=== PATIENT | female | born 1970 | race Caucasian/White ===

== ENCOUNTER 2016-08-10 17:40 | Emergency (ER) | payer OTHER ==
[~2016-08-10] VITALS: Ht 157.5 cm; Wt 53.5 kg
[2016-08-10] MEDS ORDERED: ZYRTEC10 M5 PO (17:57)
[2016-08-10] MEDS ORDERED: OMEPRAZOLE40 MG PO (17:58)
[2016-08-10] MEDS ORDERED: GABAPENTIN 100100 MG PO (17:58)
[2016-08-10] MEDS ORDERED: TRAMADOL 50 MG50 MG PO (17:58)
[2016-08-10] MEDS ORDERED: ALEVE220 MG PO (17:58)
[2016-08-10] MEDS ORDERED: NEURONTIN 300300 M1 PO (17:58)
[2016-08-10] MEDS ORDERED: CYCLOBENZAPRINE5 MG PO (17:59)
[2016-08-10] MEDS ORDERED: AMITRIPTYLINE H25 M2 PO (17:59)
[2016-08-10] MEDS ORDERED: HYDROCHLOROTHIA25 M2 PO (17:59)
[2016-08-10 18:16] LABS: HEMATOCRIT 38.6 % (37.0-47.0); HEMOGLOBIN 12.8 gm/dL (12.0-15.0); MCH 29.8 pg (26.0-34.0); MCHC 33.2 g/dL (28.0-37.0); MCV 89.6 fL (80.0-100.0); RBC 4.3 mil/uL (4.20-5.00); RDW 13.2 % (10.5-14.5); WBC 11.7 thou/uL (4.0-11.0)
[2016-08-10] MEDS ORDERED: NORCO 5-325 TA1 EACH PO (18:51)
[2016-08-10] MEDS ORDERED: KEFLEX500 MG PO (18:52)
[2016-08-10 18:57] VITALS: BP 152/98
== END 2016-08-10 18:58 | disposition home or self-care (01) ==
LOC: ER 17:40
PROVIDERS: Physician Assistant
DX: M79.641 Pain in right hand (principal); E78.5 Hyperlipidemia, unspecified; G89.29 Other chronic pain